=== PATIENT | female | born 1945 | race Caucasian/White ===

== ENCOUNTER 2016-12-31 15:58 | Observation (INO) | payer OTHER, MEDICARE ==
[~2016-12-31] VITALS: Ht 152.4 cm; Wt 105.2 kg
[~2016-12-31 15:58] MED LIST: CETI10CA PO; EPIN0.3P2 IJ; HYDR25TA4 PO; RANI150C4 PO; SUMA4CAR SQ; VENL75CA95; ZONI100C6
[2016-12-31 16:06] VITALS: BP 160/85; PULSE 100; RESP 21; O2SAT 97
--- NOTE | 2016-12-31 16:12 | ED.REPORT ---
HPI-Chest Pain 40 and Over Date of Service Dec 31, 2016 ED Provider: Rancho Brizuela DO The patient is a 71 year old female with history of hypertension and obstructive sleep apnea, who presents to the emergency department by EMS complaining of midsternal chest pain that began 1 hour ago. She describes the pain as "sharp." Her pain radiates into her left arm. She has also noticed some abdominal pain and shortness of breath. Her symptoms have waxed and waned since onset. At most severe her pain was a 9/10 and is currently at a 5/10. She has had chest pain in the past but never this severe. Nursing Notes Stated Complaint: CHEST PAIN Chief Complaint: Chest Pain Nursing Notes Reviewed: Yes Allergies: Coded Allergies: Sulfa (Sulfonamide Antibiotics) (Verified Allergy, Unknown, 01/02/15) indomethacin (Verified Allergy, Unknown, 01/02/15) meperidine (Verified Allergy, Unknown, 10/12/15) Uncoded Allergies: WALNUTS (Allergy, Severe, anaphylaxis, 10/12/15) Scheduled Cetirizine HCl (Zyrtec) 10 Mg Capsule 10 MG PO HS Hydrochlorothiazide (Hydrochlorothiazide) 25 Mg Tablet 25 MG PO DAILY Ranitidine (Ranitidine) 150 Mg Capsule 150 MG PO BID Venlafaxine ER (Venlafaxine ER) 75 Mg Cap.er.24h 3 CAPSULE DAILY Zonisamide (Zonisamide) 100 Mg Capsule 100 MG HS Miscellaneous Medications Epinephrine (Epipen 2-Iglesia) 0.3 Mg/0.3 Ml Auto.injct 0.3 MG IJ Sumatriptan Succinate (Sumatriptan Succinate) 4 Mg/0.5 Ml Cartridge 4 MG SQ General Time Seen by MD: 16:11 Chief Complaint Chest pain Hx Obtained From: Patient, EMS Arrived By: Ambulance Sudden in Onset?: Yes Onset Occurred: 1 - 4 hours ago Symptom Duration: Waxes and wanes Location: : Substernal Quality: Painful, Sharp Radiation: : Arm left Severity: Current: Pain level 5 out of 10 Severity: Maximum: Pain level 9 out of 10 Recent Healthcare: No recent doctor visit, No recent hospitalization Similar Sx Previous: No Past Medical History Past Medical History Obstructive sleep apnea Legally Blind Migraine headaches Depression Reports: Diverticulitis Past Surgical History Eye surgery Hand surgery Diverticulitis surgery Reports: Cholecystectomy Family History Noncontributory Smoking History Never Smoker Social History Alcohol Use: Denies alcohol use Other Social History: Local resident Ambulatory Status Independent Review of Systems Respiratory: Reports: Shortness of breath Cardiovascular: Reports: Chest pain GI: Reports: Abdominal pain Musculoskeletal: Reports: Extremity pain Complete sys rev & neg: except as marked. Physical Exam Initial Vital Signs Vital Signs (First) Date Time Temp Pulse Resp B/P Pulse Ox O2 Delivery O2 Flow Rate FiO2 12/31/16 16:06 36.9 100 21 160/85 97 Room Air Initial VS: Reviewed Head / Eyes: Atraumatic, Normocephalic, PERRL ENT: Mucous membranes moist, Conjunctiva normal, No scleral icterus Neck: Supple, Non-tender, Full range of motion Lymphatic: No lymphadenopathy Extremities: Vascular intact, Neuro intact, No swelling, No tenderness Skin: Warm, Dry, No cyanosis Neurologic: Alert, Oriented, Nonfocal Psychiatric: Mood/affect normal, Behavior normal, Normal thought content General/Constitutional: Awake, Alert, Cooperative Appearance / Presentation: Positive: Obese Respiratory / Chest: Atraumatic, Breath sounds NL, Breath sounds = bilat, No respiratory distress, No rales, No rhonchi, No wheezing, No stridor, No chest tenderness Cardiovascular: Heart rate NL, Regular rhythm, Heart sounds NL, No gallop, No murmurs, No rubs, Peripheral circulation NL, Pulses = bilaterally, No gross BP differential Abdomen: Atraumatic, Soft, Non-tender, McBurney's non-tender, No guarding, No rebound, BS normoactive, No distention, No hernia, No palpable mass Interpretation & Diagnostics Lab Results Interpretation Result Diagram: 12/31/16 1620 12/31/16 1620 Test 12/31/16 16:20 12/31/16 16:25 White Blood Count 10.7th/mm3 (3.8-10.1) Red Blood Count 4.96mil/mm3 (3.90-5.20) Hemoglobin 14.0g/dL (12.0-15.6) Hematocrit 44.3% (35.0-46.0) Mean Corpuscular Volume 89.3fL (81-100) Mean Corpuscular Hemoglobin 28.2pg (27.0-35.0) Mean Corpuscular Hemoglobin Concent 31.6% (32.0-37.0) Red Cell Distribution Width 14.5% (12.3-15.4) Platelet Count 378bil/L (150-400) Neutrophils (%) (Auto) 63.0% (40-74) Lymphocytes (%) (Auto) 24.6% (14-46) Monocytes (%) (Auto) 8.8% (4-12) Eosinophils (%) (Auto) 2.6% (0-5) Basophils (%) (Auto) 0.5% (0-3) Sodium Level 138mEq/L (134-144) Potassium Level 4.0mEq/L (3.5-5.2) Chloride Level 103mEq/L (97-108) Carbon Dioxide Level 20mmol/L (18-29) Blood Urea Nitrogen 19mg/dL (8-27) Creatinine 0.74mg/dL (0.57-1.00) Estimat Glomerular Filtration Rate 111mL/min (>59) Glucose Level 125mg/dL (60-99) Calcium Level 9.4mg/dL (8.5-10.1) Magnesium Level 2.2mg/dL (1.6-2.6) Total Bilirubin 0.2mg/dL (0.0-1.2) Aspartate Amino Transf (AST/SGOT) 19U/L (0-50) Alanine Aminotransferase (ALT/SGPT) 14U/L (0-32) Alkaline Phosphatase 102U/L (25-165) Troponin T < 0.010ug/L (0.0-0.011) Total Protein 7.7g/dL (6.4-8.4) Albumin 3.8g/dL (3.4-5.0) D-Dimer 0.70mg/L FEU (<0.50) ECG Interpretation ECG Interpretation: Sinus rhythm with a rate of [address] changes Time: 16:09 Interpreted by: ED physician ECG Interpretation: Unchanged Time: 17:20 Interpreted by: ED physician X-Ray Chest Interpretation Chest Xray Interpretation: IMPRESSION: No acute cardiopulmonary findings. Dictated by: Safia Monroe M.D. on 12/31/2016 at 16:5 Interpretation / Wet Read by: Interpret - Radiologist Re-Eval/Medical Decision Med Decision/Clinical Course Concern this could be acute coronary syndrome, patient is heparinized, currently chest pain-free, will be admitted. Source of Hx: Old records, EMS Time of Eval: 17:11 Re-Evaluation/Progress Note: Her pain is still a 4/10. Time of Eval: 17:18 Re-Evaluation/Progress Note: Rechecked the patient. Her chest pain is improving. Her repeat EKG is unchanged. Time of Eval: 17:53 Re-Evaluation/Progress Note: Rechecked the patient. Discussed plan for admission. All questions were addressed. Consultation : Consulted With: Hospitalist Requested Call at: 17:54 Aircraft Powerplant Repairer: Will see patient, Agrees with eval, Agrees with plan, Accepts admit Counseled Regarding: Diagnosis, Lab results, Need for admission Discharge & Departure Primary Impression: Chest pain Chest pain type: unspecified Qualified Code: R07.9 - Chest pain, unspecified Disposition: ADMITTED TO HOSPITAL Discharge Condition All VS Reviewed: Yes Condition: Stable Referrals: Rachel Conner DO (PCP) Jaime Attestation Portions of this note were transcribed by Lisette Fontanez. I, Dr. Brizuela personally performed the history, physical exam and medical decision-making; I reviewed and confirmed the accuracy of the information in the transcribed note. Signed by: Jaime Goldberg, 12/31/2016 at 1800. copies to: Rachel Conner Timothy S DO Dec 31, 2016 16:12 Lisette Fontanez Dec 31, 2016 16:24
[2016-12-31 16:33] LABS: BASOPHILS % (AUTO) 0.5 % (0-3); EOSINOPHILS % (AUTO) 2.6 % (0-5); MONOCYTES % (AUTO) 8.8 % (4-12); Mean Corpuscular Hemoglobin 28.2 pg (27.0-35.0); Mean Corpuscular Volume 89.3 fL (81-100); Platelet Count 378 bil/L (150-400)
[2016-12-31 16:34] VITALS: BP 143/86; PULSE 90; RESP 24; O2SAT 97
--- NOTE | 2016-12-31 16:58 | DRSVH ---
PROCEDURE: X-RAY CHEST ONE VIEW, PORTABLE ([id number]) INDICATIONS: chest pain TECHNIQUE: One view of the chest was acquired. COMPARISON: None. FINDINGS: Surgical changes and devices: None. Lungs and pleura: No pleural effusions or pneumothorax. Lungs are clear. Mediastinum: Mediastinal contours appear normal. Heart size is normal. Bones and chest wall: No suspicious bony lesions. Overlying soft tissues appear unremarkable. IMPRESSION: No acute cardiopulmonary findings. Dictated by: Safia Monroe M.D. on 12/31/2016 at 16:56 Approved by: Safia Monroe M.D. on 12/31/2016 at 16:56
[2016-12-31 17:11] LABS: Magnesium 2.2 mg/dL (1.6-2.6); TROPONIN T < 0.010 ug/L (0.0-0.011)
[2016-12-31] MEDS ORDERED: Ondansetron 2 mg/mL 2 mL Inj IVPUSH PRN ×3 (17:15→20:10)
[2016-12-31] MEDS ORDERED: Heparin 5,000 Unit/mL Inj IVPUSH ONE (18:10)
[2016-12-31] MEDS ORDERED: Heparin 25K Unit/500mL 0.45 NS 25,000 UNIT in IV Premix 1 EACH IV ONE (18:10)
[2016-12-31] MEDS ORDERED: Alum-Mag Hydrox-Simeth 30 mL Suspension PO PRN ×2 (18:15→20:10)
[2016-12-31 19:02] VITALS: BP 138/75; PULSE 81; RESP 22; O2SAT 94
[2016-12-31 19:26] VITALS: BP 129/79; PULSE 85; RESP 16; O2SAT 95
[2016-12-31] MEDS ORDERED: Senna-Docusate 8.6-50 mg Tablet PO PRN (20:10)
[2016-12-31] MEDS ORDERED: Atropine 1 mg/10 mL (Code) Syringe IVPUSH PRN (20:10)
[2016-12-31] MEDS ORDERED: Polyethylene Glycol (PEG) 17 Gm Powder PO PRN (20:10)
[2016-12-31 20:33] VITALS: BP 140/79; PULSE 85; RESP 21; O2SAT 99
--- NOTE | 2016-12-31 20:41 | PCM.HPMED ---
Subjective Date of Service Dec 31, 2016 Primary Provider: Admitting Physician: Edgar Cheek Primary Care Physician: Alcon Cota DO Attending Physician: Edgar Cheek Chief Complaint: chest pain History of Present Illness: Amada is a 71 yo F who is legally blind with history of FRANCESCA on CPAP, Chronic Migraines, Anxiety and Depression, and HTN who presents to the ED by EMS for complaints of midsternal CP that began 1 hour ago. She reports the chest pain was 9/10 and was sharp and radiated into her left arm. Prior to the CP, she had a temporal headache, mild nausea, and some lightheadedness. She denies any associated diaphoresis, vision changes, or focal weakness. She states the pain was severe enough to make her short of breath, but was not worse with deep breaths. Her symptoms all did improve slightly within 10-15 mins without any other interventions, but her left upper arm and left hand pain was still somewhat painful. She reports she was just at home resting when this occurred, but states she had been doing some heavy yard work prior to the episode. In the previous month, she has not been ill, has not had any changes in her medications , and has not noticed any decline in her physical activity. This was the first time she has done heavy yard work in a while. She denies any VAZQUEZ, she uses her CPAP regularly every night, she sleeps on 2 pillows regularly. She has had chest pain in the past and has been evaluated and told that it was musculoskeletal in nature. She does receive OMT for this, which does improve her pain. 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 She received a full dose ASA and Nitro x1 during EMS ride. In the ED patient was afebrile with a blood pressure of 160/85, and saturating 97% on room air. She had an EKG that was read as IVCD per ED physician. Her initial CBC, CMP, and Trop were all benign. She had a d-dimer that was elevated at 0.70. She was initiated on a Heparin drip and admitted for evaluation of her chest pain. Review of Systems: 12 Pt ROS neg except as stated in the HPI Allergies Coded Allergies: Sulfa (Sulfonamide Antibiotics) (Verified Allergy, Unknown, 01/02/15) indomethacin (Verified Allergy, Unknown, 01/02/15) meperidine (Verified Allergy, Unknown, 10/12/15) Uncoded Allergies: WALNUTS (Allergy, Severe, anaphylaxis, 10/12/15) Home Medications Scheduled Cetirizine HCl (Zyrtec) 10 Mg Capsule 10 MG PO HS Hydrochlorothiazide (Hydrochlorothiazide) 25 Mg Tablet 25 MG PO DAILY Venlafaxine ER (Venlafaxine ER) 75 Mg Cap.er.24h 3 CAPSULE DAILY Zonisamide (Zonisamide) 100 Mg Capsule 100 MG HS Mirapex 0.125 mg QHS PMH Obstructive sleep apnea Legally Blind Chronic Migraine headaches Depression and Anxiety H/o BPPV Reports: Diverticulitis with bowel resection 20 years ago Past Surgical History Eye surgery Hand surgery Diverticulitis surgery Reports: Cholecystectomy Family History Family history of DM2 Family history of father who from [place], brother with bypass surgery. Social History Hx Alcohol Use: No Hx Substance Use: No Hx Tobacco Use: No Smoking Status: Never Smoker Living Arrangement: with Family Exam Vital Signs Vital Sign - Last Date Time Temp Pulse Resp B/P Pulse Ox O2 Delivery O2 Flow Rate FiO2 12/31/16 19:02 81 22 138/75 94 Room Air 12/31/16 16:06 36.9 Exam Gen: Obese female who appears in NAD while laying in bed, cooperative and pleasant HEENT: NC/AT, PERRLA, EOMI, Oropharynx moist and pink, no dentition, dentures not present Neck: Soft, trachea midline, nontender, No JVD noted CV: RRR, soft systolic murmur noted Resp: CTAB, normal resp effort, Left upper chest mildly tender to palpation, Abd: Soft, Obese, NT, ND, Normoactive BS noted Msk: MS grossly intact and equal, no swollen or tender joints. Left trapezius and lateral shoulder region mildly tender to palpation. Neuro: CN2-12 grossly intact and equal, no focal weakness, gait not tested Skin: Warm, dry, intact, no rashes noted Extremities: no edema, clubbing, cyanosis noted Psych: Appropriate mood and affect, linear thought process. Lab and Diagnostics Result Diagram: 12/31/16 1620 12/31/16 1620 X-Rays, CTs and MRIs CXR 1 view - no acute Cardiopulm disease noted 12-lead ECG NSR, rate in the 90s, QTC in the 470s Assessment & Plan 71 yo F who is legally blind with history of FRANCESCA on CPAP, Chronic Migraines, Anxiety and Depression, and HTN who presents for evaluation of her acute Chest pain. #Chest Pain, Present on Admission Patient admitted for ACS rule out. Initial troponin, EKG, and labs unremarkable. Patient's presentation of chest pain after doing yard work could represent unstable angina. She also has been dealing with increased stress recently, which could have precipitated this. She also has a history of intermittent left-sided chest pain that is MSK in nature. Patient does report a fairly significant history of heart disease and diabetes. PE is also a possibility with her presentation. Patient was tachycardic, tachypneic, and had an elevated d-dimer on admission. Will obtain CTA chest to assess for a pulm emboli We will place on telemetry for CV monitoring Heart healthy diet for tonight and nothing by mouth in the a.m. for stress test Sublingual Nitro prn CP, Ativan prn anxiety Pharmacological Stress Test in AM. Patient is legally blind and is not very steady on her feet. Echocardiogram ordered Continue heparin drip and PTT monitoring Initial troponin negative, will trend troponin and stop heparin drip if negative. Lipid profile in a.m. #Obstructive sleep apnea, POA Patient reports she has been compliant with her CPAP Placed on CPAP #Essential hypertension, POA Patient on admission to the ER was slightly hypertensive in the 160 systolic. Likely due to pain and stress since this resolved fairly quickly Continue hydrochlorothiazide #Depression and Anxiety, POA Recent stressors due to partner's declining health. Should follow up with outpatient PCP for further management Continue Venlafaxine while inpatient. #Chronic migraines, POA Continue daily zonisamide #BMI 45 Encouraged healthy diet and exercise We will check hemoglobin A1c Tylenol PRN pain/fever Zofran prn nausea Bowel regimen prn constipation Restoril prn insomnia CODE STATUS: Full resuscitation Admission status: Patient is admitted under observation status due to medical complexity and risk of adverse effect. She will likely be discharged tomorrow if echocardiogram and stress tests are reassuring Pain Evaluation: Adequate Pain Control VTE Prophylaxis: Other (Currently on Hep GTT) Resuscitation Status: CPR: Attempt Resuscitation Attending Statement The patient was seen and examined together with Dr. Thao on 12/31 and I agree with the history, exam and plan as outlined in the note above. Ata Thao DO Dec 31, 2016 19:14 Stephon Cuenca MD Dec 31, 2016 21:39
--- NOTE | 2016-12-31 21:07 | NUR ---
Admit to room 3012 with Chest pain r/o ACS. Alert and Oriented x3, legally blind, oriented to room and poc on whiteboard. VSS O2 sat 95% on RA. Bed down, locked with 2 side rails up, non-slip socks for safety, ambulates sba with steady gait, some hx of dizziness on exertion. Currently prefers vegetarian diet.
[2016-12-31 21:09] LABS: Magnesium 2.2 mg/dL (1.6-2.6)
--- NOTE | 2016-12-31 21:09 | NUR ---
Med Rec patient poor historian unable to confirm doses or all medications. Updated pharmacy and faxed for list of medications.
--- NOTE | 2016-12-31 22:19 | NUR ---
Off Floor for CT transport via [facility] by Safia Briggs Addendum: 01/01/17 at 0301 by THOMAS ZUNIGA RN Back from CT @22:40
[2016-12-31 23:46] LABS: APPEARANCE,URINE CLEAR (CLEAR,HAZY); COLOR,URINE YELLOW (YELLOW); OCCULT BLOOD,URINE NEGATIVE (NEGATIVE); UROBILINOGEN,URINE NORMAL (NORMAL)
[2016-12-31] MEDS ORDERED: Heparin 25K Unit/500mL 0.45 NS 25,000 UNIT in IV Premix 1 EACH IV SCH (23:55)
[2017-01-01 05:05] VITALS: BP 149/89; PULSE 82; RESP 20; O2SAT 99
[2017-01-01 06:32] VITALS: PULSE 72
[2017-01-01 06:35] LABS: BASOPHILS % (AUTO) 0.4 % (0-3); EOSINOPHILS % (AUTO) 2.6 % (0-5); MONOCYTES % (AUTO) 9.4 % (4-12); Mean Corpuscular Hemoglobin 28.3 pg (27.0-35.0); Mean Corpuscular Volume 89.2 fL (81-100); NEUTROPHILS % (AUTO) 62.6 % (40-74); Platelet Count 329 bil/L (150-400)
--- NOTE | 2017-01-01 09:12 | DRSVH ---
PROCEDURE: CT ANGIO CHEST PULMONARY EMBOLISM ([id number]) INDICATIONS: 71 year-old woman with chest pain, elevated d-dimer. TECHNIQUE: After the administration of intravenous contrast, 2 mm thick sections acquired from the pulmonary api emmanuel to the posterior costophrenic angles. 3-dimensional maximum intensity projection (MIP) coronal a nd sagittal reformats were then acquired through the thorax. For radiation dose reduction, the follo wing was used: automated exposure control, adjustment of mA and/or kV according to patient size. COMPARISON: [facility], CR, XR CHEST 1VW (PORTABLE), 12/31/2016, 16:10. FINDINGS: Image quality: Excellent. Pulmonary arteries: Pulmonary arteries are normal in size, and demonstrate no intraluminal filling d efects to suggest central pulmonary embolism. Lungs and pleura: Mild dependent atelectasis at lung bases. There is lingular scars or atelectasis. No pleural effusions or pneumothorax. Central and peripheral airways are patent. Mediastinum: Heart size is normal, without pericardial effusion. No mediastinal or hilar adenopathy . Thoracic aorta is normal in caliber and enhancement. Esophagus is normal in caliber. A small hiat al hernia. Bones and chest wall: No suspicious bony lesions. Ribs and thoracic spine appear intact throughout. Thyroid gland is normal. No axillary or supraclavicular adenopathy. Abdomen: Visualized upper abdominal solid organs appear normal in the early arterial phase of enhanc ement. IMPRESSION: 1. No evidence for acute pulmonary emboli. 2. Lingular scars or atelectasis. 3. Small hiatal hernia. Dictated by: Aliyah Lamb M.D. on 01/01/2017 at 9:05 Approved by: Aliyah Lamb M.D. on 01/01/2017 at 9:10
--- NOTE | 2017-01-01 09:13 | NUR ---
OFF floor to CV[facility] Pt off unit at this time, taken on wc by CV[facility] staff. c/o L side arm pain 2/10, decreasing since admit, per pt. Tele notified. AM meds held.
[2017-01-01 09:20] VITALS: PULSE 78
[2017-01-01 11:18] VITALS: BP 151/86; PULSE 87; RESP 16; O2SAT 98
--- NOTE | 2017-01-01 11:34 | NUR ---
Dominique explained and signed Addendum: 01/01/17 at 1137 by MINERVA HOFFMAN SS Copy of MICAH given to pt.
--- NOTE | 2017-01-01 14:23 | DRSVH ---
[facility] [address] [place] [address] Echocardiogram Report Name: MAXWELL SY Stephen e: 01/01/2017 Height: 60 in Hospital Exam Location: [facility] Weight: 232 lb Gender: Female BSA: 2.0 m2 : 1945 Age: 71 yrs BP: 149/89 mmHg Reason For Study: CHEST PAIN Ordering Physician: HOSPITALIST BUDDYerformed By: Meenakshi Maria Referring Physician: DR. Katelyn DAVIS Interpretation Summary Left ventricular systolic function is normal without focal wall motion abnormalities with the ejection fraction visually estimated to be 65-70%. Assessment of diastolic parameters indicates normal left ventricular diastolic function and normal filling pressures. The right ventricle grossly appears normal in size with probable normal systolic function. Pulmonary artery pressures cannot be estimated because of the lack of a measurable TR jet velocity but the IVC suggests a low right atrial pressure of 3 mm Hg. Both atria are normal in size. There is no obvious significant valvular heart disease. Procedure: A two-dimensional transthoracic echocardiogram with color flow and Doppler was performed. The study quality was technically difficult. A contrast injection of Definity was performed to improve assessment of LV function. Contrast was injected into an intravenous site in the right arm. A total of 4 cc of contrast was given. There is no prior echocardiogram noted for this patient. The patient was in normal sinus rhythm during the exam. The patient did well with the Definity Contrast. Left Ventricle: The left ventricle is grossly normal size. There is normal left ventricular wall thickness. Left ventricular systolic function is normal without focal wall motion abnormalities. The ejection fraction is estimated to be 65-70%. Spectral Doppler of the mitral valve shows a normal E/A wave ratio. Assessment of diastolic parameters indicates normal left ventricular diastolic function and normal filling pressures. Right Ventricle: The right ventricle grossly appears normal in size with probable normal systolic function. Atria: Both atria are normal in size. There is no Doppler evidence for an atrial septal defect. Mitral Valve: There is mild mitral annular calcification. The mitral valve is grossly normal. There is trace mitral regurgitation. Aortic Valve: The aortic valve is not well visualized. The aortic valve is grossly normal. The aortic valve opens well. No aortic regurgitation is present. Tricuspid Valve: The tricuspid valve is not well visualized, but is grossly normal. There is a trace or physiologic amount of tricuspid regurgitation. Pulmonary artery pressures cannot be estimated because of the lack of a measurable TR jet velocity. Pulmonic Valve: The pulmonic valve is not well visualized. There is no pulmonic valvular regurgitation. There is no significant valvular heart disease. Great Vessels: The aortic root is normal size. The dimensions of the ascending aorta are normal. The pulmonary artery is not well visualized, but is probably normal size. The IVC is of normal diameter and collapses greater than 50% with a sniff. This suggests a low right atrial pressure of 3 mm Hg. Pericardium/ Pleura There is no pericardial effusion. There is no pleural effusion. MMode/2D Measurements & Calculations LVIDd: 4.2 cm LA dimension RA long axis LVOT diam: 2.0 cm IVSd: 0.95 cm AoV Openin.9 cm LVPWd: 1.0 cm LA A2 area RA area Ao root diam: 3.3 cm asc Aorta Diam : 13.8 cm LA A4 area RA vol: 34.2 mlAo Arch Diam (Prox RA Trans): 2.7 cm LA length (vol) : 17.2 mm/ RVDd major LA vol: 63.6 ml : 6.3 cm LA vol index IVC diam: 1.2 cm LV chavez. diameter/BSA RVD2 (mid) (cm/m^2): 2.1 : 2.6 cm Doppler Measurements & Calculations Ao V2 max MV E max edward MV E/A: 1.0 PA V2 max : 141.6 cm/sec : 82.8 cm/sec Med Peak E' Edward : 97.2 cm/sec Ao max PG MV A max edward PA mean PG : 8.0 mmHg : 81.6 cm/sec E/E' med: 9.1 Ao mean PG MV P1/2t: 66.1 msec Lat Peak E' Edward PA Accel Time : 0.12 sec LVOT Max Edward E/E' lat: 9.9 : 109.4 cm/sec E/e' average: 9.5 Pulm A Revs Dur EDDIE(I,D): 2.6 cm sev ratio MV A dur: 0.12 sec MV dec time MV P1/2t max edward Ao V2 mean LV V1 max PG : 0.22 sec : 99.5 cm/sec MVA(P1/2t): 3.3 cm2 Ao V2 VTI: 30.5 cm LV V1 VTI EDDIE(V,D): 2.4 cm2 : 24.9 cm PA V2 mean EDDIE indexed to BSA Pulm A Revs Dur - MV : 76.4 cm/sec (cm^2/m^2): 1.3 A Dur: 0.00 msec Reading Physician:02:23 PM
--- NOTE | 2017-01-01 14:42 | NUR ---
Social Work Note: Initial Assessment Data& Assessment: EMR reviewed. SW met with pt and pt family at bedside to discuss discharge planning, SW role explained. Amada Pizano is a 71 year old female under observation for chest pain, and rule out ACS. Pt has [employer] [facility] [place] and Medicare insurance coverage. Pt lives in [place] with her Significant other Carri and is independent with all ADL's at baseline. Pt is legally blind and has a guide dog as well as a white point cane. 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 Pt has never had SNF or HH services herself. Pt does not have LTC insurance or VA benefits. Pt provided with DPOA/Advance Directive paperwork to review and complete when possible. Pt explained she will not be her S/O [employer]IM[employer] caregiver for much longer and is speaking to her S/O [employer] CM regarding having another caregiver assigned. Pt explained the stress and physical demands have become too much for her. Pt explained she has felt more weak in the last few days and is concerned about her blood pressure going home and having another episode of chest pain. Pt confirmed that she is homebound and will be when she discharges, SW discussed home health services with MD. Pt will require RN for vitals, PT for strengthening and balance, and SW for ongoing support. SW provided home health list for preferences, pt does not have a preference and agreed to refer to the rotating calendar. Referral to [facility] completed, access provided. SW and pt discussed various resources and services. Pt provided with: -Parkinsons caregiving and family support group information -Senior resource information for respite care -Senior resource guide book for affordable senior housing options (Pt explained they are on the waiting list for [facility] in [place]). -Financial Assistance application to aid in any medical bills from this hospitalization as she is observation status. -Meals on Wheels information -Medicaid Application for when she loses her [employer] insurance coverage -Counseling information per pt request Pt and pt family denies any other needs. No other discharge needs identified at this time. SW to continue to follow if any other needs arise. Plan: Anticipated discharge home via POV when medically ready with [facility], RN and SW to follow. Resources provided. Pt and pt family denies any other needs. No other discharge needs identified at this time. SW to continue to follow if any other needs arise. CAYETANO Krueger Addendum: 01/01/17 at 1502 by MATT NGUYEN Amended: Links added.
--- NOTE | 2017-01-01 14:55 | DRSVH ---
PROCEDURE PERFORMED: Pharmacologic vasodilator stress only myocardial perfusion imaging with gating to assess ejection fraction and regional wall motion. RADIOPHARMACEUTICAL: Stress: 21.8 mCi of jacky hnetium-99 tetrofosmin. INDICATIONS: The patient is a 71-year-old legally blind female with obstructive sleep apnea who pres ents with persistent atypical chest discomfort and normal troponins. COMPARISON: None. VASODILATOR STRESS: The patient presented to the CV lab having ongoing mild chest discomfort which h ad been persistent since admission. 0.4 mg of Lexiscan was injected per protocol with slightly worse magalie of her discomfort. Her resting ECG showed sinus rhythm with some subtle nonspecific ST segment abnormalities which remained unchanged with stress. There were no arrhythmias. Her symptoms spontan eously abated back to their baseline level and no aminophylline was required. FINDINGS: 1. Raw Data: There is fair myocardial tracer uptake. There is no evidence for increased lung uptak e. 2. Quantitative Gated SPECT: Post-stress ejection fraction is estimated at 82% without any focal wa ll motion abnormality with relatively small left ventricular volumes with an end diastolic volume at 54 mL. 3. Myocardial Perfusion Imaging: Post-stress supine images show a fairly normal myocardial perfusio n pattern with perhaps a very subtle decrease in the mid and distal inferolateral segment but this de fect completely resolves on the prone images, revealing a normal perfusion pattern suggesting it most likely reflects attenuation artifact. There is no evidence for any significant perfusion defects. CONCLUSION: 1. Normal myocardial perfusion study. 2. No evidence of myocardial ischemia or previous myocardial infarction. 3. Normal left ventricular systolic function without focal wall motion abnormality with relatively s mall left ventricular volumes. 4. Persistent atypical chest discomfort with slight accentuation with pharmacologic stress but witho ut any ST segment shift to suggest ischemia. Dictated by: Martín Duarte M.D. on 01/01/2017 at 13:58 Transcribed by: MELVI on 01/01/2017 at 17:55 Approved by: Martín Duarte M.D. on 01/01/2017 at 16:16 cc: Alcon Cota MD; Edgar Cheek MD
--- NOTE | 2017-01-01 15:13 | PCM.DIMED ---
Discharge Instructions Date of Service Jan 01, 2017 Dates of Hospitalization Dec 31, 2016 at 19:02 Discharge Diagnosis Discharge Diagnosis # Chest Pain, Present on Admission. Resolved - Unclear etiology but ruled out for pulmonary embolism and acute myocardial infarction and with negative cardiac workup including a negative stress test. # Chronic obstructive sleep apnea, on home CPAP # Essential hypertension, stable. # Depression and Anxiety. stable. # Chronic migraines, stable. # Obesity. BMI 45 Medication Instructions Resume home medications as before Diet Heart Healthy Activity No restrictions Call your provider Fever or Chills, Shortness of breath, Chest pain Patient Instructions Seek immediate medical attention if any new or worsening signs or symptoms occur. Follow-up plan 1. Followup with primary care provider within coming week. Follow-up Provider: Alcon Cota Masoud Jan 01, 2017 15:13
--- NOTE | 2017-01-01 15:19 | PCM.DC.MED ---
Discharge Summary Date of Service Jan 01, 2017 Dates of Hospitalization Date of Hospital Admission Dec 31, 2016 at 19:02 Date of Discharge: Jan 01, 2017 Providers: Admitting Physician: Edgar Cheek Primary Care Physician: Alcon Cota DO Attending Physician: Edgar Cheek Diagnosis at Time of Discharge Diagnosis at Time of Discharge # Chest Pain, Present on Admission. Resolved - Unclear etiology but ruled out for pulmonary embolism and acute myocardial infarction and with negative cardiac workup including a negative stress test. # Chronic obstructive sleep apnea, on home CPAP # Essential hypertension, stable. # Depression and Anxiety. stable. # Chronic migraines, stable. # Obesity. BMI 45 Procedures XRay, CTs & MRIs Date of Service: 12/31/16 1607 PROCEDURE: X-RAY CHEST ONE VIEW, PORTABLE ([id number]) IMPRESSION: No acute cardiopulmonary findings. Dictated by: Safia Monroe M.D. on 12/31/2016 at 16:56 Approved by: Safia Monroe M.D. on 12/31/2016 at 16:56 Date of Service: 12/31/162108 PROCEDURE: CT ANGIO CHEST PULMONARY EMBOLISM ([id number]) IMPRESSION: 1. No evidence for acute pulmonary emboli. 2. Lingular scars or atelectasis. 3. Small hiatal hernia. Dictated by: Aliyah Lamb M.D. on 01/01/2017 at 9:05 Approved by: Aliyah Lamb M.D. on 01/01/2017 at 9:10 Cardiac Echo Impression Date of Service: 01/01/172007 Echocardiogram Report Interpretation Summary Left ventricular systolic function is normal without focal wall motion abnormalities with the ejection fraction visually estimated to be 65-70%. Assessment of diastolic parameters indicates normal left ventricular diastolic function and normal filling pressures. The right ventricle grossly appears normal in size with probable normal systolic function. Pulmonary artery pressures cannot be estimated because of the lack of a measurable TR jet velocity but the IVC suggests a low right atrial pressure of 3 mm Hg. Both atria are normal in size. There is no obvious significant valvular heart disease. Reading Physician:02:23 PM Other Diagnostics Date of Service: 01/01/172014 PROCEDURE PERFORMED: Pharmacologic vasodilator stress only myocardial perfusion imaging with gating to assess ejection fraction and regional wall motion. CONCLUSION: 1. Normal myocardial perfusion study. 2. No evidence of myocardial ischemia or previous myocardial infarction. 3. Normal left ventricular systolic function without focal wall motion abnormality with relatively small left ventricular volumes. 4. Persistent atypical chest discomfort with slight accentuation with pharmacologic stress but without any ST segment shift to suggest ischemia. Dictated by: Martín Duarte M.D. on 01/01/2017 at 13:58 Transcribed by: MELVI on 01/01/2017 at 17:55 Brief History As noted in H&P by Dr. Thao: Amada is a 71 yo F who is legally blind with history of FRANCESCA on CPAP, Chronic Migraines, Anxiety and Depression, and HTN who presents to the ED by EMS for complaints of midsternal CP that began 1 hour ago. She reports the chest pain was 9/10 and was sharp and radiated into her left arm. Prior to the CP, she had a temporal headache, mild nausea, and some lightheadedness. She denies any associated diaphoresis, vision changes, or focal weakness. She states the pain was severe enough to make her short of breath, but was not worse with deep breaths. Her symptoms all did improve slightly within 10-15 mins without any other interventions, but her left upper arm and left hand pain was still somewhat painful. She reports she was just at home resting when this occurred, but states she had been doing some heavy yard work prior to the episode. In the previous month, she has not been ill, has not had any changes in her medications , and has not noticed any decline in her physical activity. This was the first time she has done heavy yard work in a while. She denies any VAZQUEZ, she uses her CPAP regularly every night, she sleeps on 2 pillows regularly. She has had chest pain in the past and has been evaluated and told that it was musculoskeletal in nature. She does receive OMT for this, which does improve her pain. 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 She received a full dose ASA and Nitro x1 during EMS ride. In the ED patient was afebrile with a blood pressure of 160/85, and saturating 97% on room air. She had an EKG that was read as IVCD per ED physician. Her initial CBC, CMP, and Trop were all benign. She had a d-dimer that was elevated at 0.70. She was initiated on a Heparin drip and admitted for evaluation of her chest pain. Hospital Course Hospital course was fairly unremarkable. Patient ruled out for pulmonary embolism and for acute IA with serial negative Trop. Stress test and echocardiogram also unremarkable as noted above. By time of discharge she denies any further chest discomfort but reports some reflux and continued left arm discomfort. Physical exam is otherwise unremarkable with lungs clear to auscultation bilaterally. Cardiovascular: RRR. Abdomen soft, nt, nd, +bs Exam Vital Signs (Last) Date Time Temp Pulse Resp B/P Pulse Ox O2 Delivery O2 Flow Rate FiO2 01/01/17 11:18 36.5 87 16 151/86 98 Room Air Test 12/31/16 16:20 12/31/16 16:25 12/31/16 23:30 12/31/16 23:55 Magnesium Level 2.2mg/dL (1.6-2.6) Total Bilirubin 0.2mg/dL (0.0-1.2) Aspartate Amino Transf (AST/SGOT) 19U/L (0-50) Alanine Aminotransferase (ALT/SGPT) 14U/L (0-32) Alkaline Phosphatase 102U/L (25-165) Total Protein 7.7g/dL (6.4-8.4) Albumin 3.8g/dL (3.4-5.0) Thyroid Stimulating Hormone (TSH) 2.420uIU/mL (0.450-4.500) D-Dimer 0.70mg/L FEU (<0.50) Urine Color Yellow (YELLOW) Urine Appearance Clear (CLEAR,HAZY) Urine pH 6.0 (5.0-8.0) Urine Specific Weiser 1.010 (1.003-1.035) Urine Protein Negativemg/dL (NEG,TRACE) Urine Glucose (UA) Negativemg/dL (NEGATIVE) Urine Ketones Negativemg/dL (NEGATIVE) Urine Occult Blood Negative (NEGATIVE) Urine Nitrite Negative (NEGATIVE) Urine Bilirubin Negative (NEGATIVE) Urine Urobilinogen Normalmg/dL (NORMAL) Urine Leukocyte Esterase Negative (NEGATIVE) Urine RBC 0-2/hpf (0-2) Urine WBC 0-5/hpf (0-5) Urine Epithelial Cells Few/hpf (NONE-MOD) Urine Crystals None seen (NONE SEEN) Urine Bacteria Few/hpf (NONE-FEW) Urine Hyaline Casts None/lpf (NONE) Urine Granular Casts None seen (NONE SEEN) Urine Waxy Casts None seen (NONE SEEN) Urine Red Blood Cell Casts None seen (NONE SEEN) Urine White Blood Cell Casts None seen (NONE SEEN) Urine Mucus None seen (None Seen) Urine Trichomonas None seen (NONE SEEN) Urine Yeast None (NONE SEEN) Urinalysis Comment None Urine Culture Reflexed Not indicated Activated Partial Thromboplast Time 45.0sec (22.8-33.0) Test 01/01/17 04:00 01/01/17 06:15 Troponin T 0.010ug/L (0.0-0.011) White Blood Count 10.5th/mm3 (3.8-10.1) Red Blood Count 4.73mil/mm3 (3.90-5.20) Hemoglobin 13.4g/dL (12.0-15.6) Hematocrit 42.2% (35.0-46.0) Mean Corpuscular Volume 89.2fL (81-100) Mean Corpuscular Hemoglobin 28.3pg (27.0-35.0) Mean Corpuscular Hemoglobin Concent 31.8% (32.0-37.0) Red Cell Distribution Width 14.6% (12.3-15.4) Platelet Count 329bil/L (150-400) Neutrophils (%) (Auto) 62.6% (40-74) Lymphocytes (%) (Auto) 24.7% (14-46) Monocytes (%) (Auto) 9.4% (4-12) Eosinophils (%) (Auto) 2.6% (0-5) Basophils (%) (Auto) 0.4% (0-3) Sodium Level 138mEq/L (134-144) Potassium Level 4.8mEq/L (3.5-5.2) Chloride Level 105mEq/L (97-108) Carbon Dioxide Level 20mmol/L (18-29) Blood Urea Nitrogen 15mg/dL (8-27) Creatinine 0.67mg/dL (0.57-1.00) Estimat Glomerular Filtration Rate 125mL/min (>59) Glucose Level 110mg/dL (60-99) Calcium Level 9.0mg/dL (8.5-10.1) Triglycerides Level 177mg/dL (0-149) Cholesterol Level 184mg/dL (100-199) LDL Cholesterol, Calculated 106.600mg/dL (0-99) VLDL Cholesterol 35.400mg/dL HDL Cholesterol 42mg/dL (>39) Cholesterol/HDL Ratio 4.38 (0.0-4.4) Discharge Medications Discharge Medications Cetirizine HCl (Zyrtec) 10 Mg Capsule 10 MG PO DAILY (Reported) Hydrochlorothiazide (Hydrochlorothiazide) 25 Mg Tablet 25 MG PO DAILY Prescribed by: JONATHAN ROSS DO Ranitidine (Ranitidine) 150 Mg Capsule 150 MG PO BID (Reported) Venlafaxine ER (Venlafaxine ER) 75 Mg Cap.er.24h 3 CAPSULE DAILY (Reported) Zonisamide (Zonisamide) 100 Mg Capsule 100 MG HS (Reported) Miscellaneous Medications Epinephrine (Epipen 2-Iglesia) 0.3 Mg/0.3 Ml Auto.injct 0.3 MG IJ (Reported) Sumatriptan Succinate (Sumatriptan Succinate) 4 Mg/0.5 Ml Cartridge 4 MG SQ ( Reported) Additional med instructions Resume home medications as before Followup Plan Disposition: Home with home health Follow-up plan 1. Followup with primary care provider within coming week. Discharge Diet: Heart Healthy Discharge Activity: No restrictions Patient Instructions Seek immediate medical attention if any new or worsening signs or symptoms occur. Follow-up Provider: Alcon Cota DO Time spent 30 min copies to: Alcon Cota Masoud Jan 01, 2017 15:19
[2017-01-01] MEDS ORDERED: Pantoprazole 40 mg ER24 Tablet PO ONE (15:35)
[2017-01-01 15:43] VITALS: BP 163/96; PULSE 74; RESP 18; O2SAT 96
--- NOTE | 2017-01-01 17:19 | NUR ---
Social Work Note: Discharge Data& Assessment: Per pt is medically improved and ready for discharge. Amada Pizano is a 71 year old female under observation for chest pain. Per pt stress test was normal and pt is medically improved and ready for discharge. Pt was provided with resources and will be going home with [facility], RN and SW to follow. SW spoke with Bear with [facility] and notified him of pt discharge, documentation faxed. Pt and pt family denies any other needs. No other discharge needs identified. Plan: Per pt is medically ready to discharge home via POV with [facility], RN and SW to follow. Pt and pt family denies any other needs. No other discharge needs identified. All updated and agreeable to plan. CAYETANO Krueger
--- NOTE | 2017-01-01 18:08 | NUR ---
Discharge Pt d/c home with yellow cab at 1720. pt denied pain. IV d/c prior to leaving. VSS. all personal belongings left with pt. Discharge info discussed with pt and questions answered. Pt encouraged to f/u with PCP, douglas to discuss CT results.
== END 2017-01-01 17:32 | disposition home or self-care (01) ==
LOC: EDUNIT# 15:58 → EDBD 15:58 → SED 15:58 → MPC 19:02
PROVIDERS: ADMIT Internal Medicine; ATTEND Internal Medicine
DX: R07.89 Other chest pain (principal); G47.33 Obstructive sleep apnea (adult) (pediatric); G43.909 Migraine, unspecified, not intractable, without status migrainosus; I10 Essential (primary) hypertension; F41.9 Anxiety disorder, unspecified; F32.9 Major depressive disorder, single episode, unspecified; E66.9 Obesity, unspecified; Z68.42 Body mass index [BMI] 45.0-49.9, adult; Z79.899 Other long term (current) drug therapy
CPT/HCPCS: 36415; 71010; 71275; 78451; 80048; 80053; 80061; 81000; 82948; 83036; 83735; 84443; 84484; 85025; 85378; 85730; 93005; 93017; 96374; 96375; 96376; 99285; A9502; C8929; G0378; J1644; J2270; J2785; Q9957; Q9967